=== PATIENT | male | born 1965 | race Caucasian/White ===

== ENCOUNTER 2018-02-12 17:41 | Emergency (ER) | payer SELFPAY | END 2018-02-12 18:25 | disposition home or self-care (01) | LOC: SCSER 17:41 | DX: F41.9 Anxiety disorder, unspecified (principal); E11.9 Type 2 diabetes mellitus without complications; I10 Essential (primary) hypertension; Z79.84 Long term (current) use of oral hypoglycemic drugs; Z79.899 Other long term (current) drug therapy | CPT/HCPCS: 36416; 93005 ==